=== PATIENT | female | born 1945 | race African-American/Black ===

== ENCOUNTER → 2021-09-13 | Outpatient (CLI) | payer MEDICARE ==
--- NOTE | 2021-09-13 11:38 | KCIC ---
MRI of the cervical spine without contrast 09/13/2021 CLINICAL HISTORY: Bilateral leg weakness with frequent falls. TECHNIQUE: Unenhanced T1-weighted, T2-weighted and inversion recovery sagittal and gradient echo and T2-weighted axial images of the cervical spine were obtained. FINDINGS: Mild lateral curvature of the cervical spine is seen convex to the left. There is straighte jason of the normal cervical lordosis. Degenerative signal changes and loss of height are seen involvi ng all of the disks of the cervical spine. Bony fusion across the C5-6 and C6-7 disc space is seen. P aracentral areas of increased signal intensity are seen on the T2-weighted and inversion recovery zainab ges involving the cervical spinal cord at the C3-4 and C4-5 levels. These measure 3 to 4 mm in size a nd are consistent with areas of myelomalacia. No additional area of abnormal signal intensity is seen involving the cervical spinal cord. 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 At the C2-3 disc space there is a mild generalized disc bulge. Degenerative changes are seen involvin g the uncovertebral and facet joints, right greater than left. These findings when combine with ossif ication of posterior longitudinal ligament results in mild central spinal canal stenosis without evid ence of cord impingement. Mild right neural foraminal stenosis is seen. The left neural foramen is pa tent. At the C3-4 disc space there is a mild to moderate generalized disc bulge. Degenerative changes are s een involving the uncovertebral and facet joints bilaterally. These findings when combined with calci fication of posterior longitudinal ligament results in severe left greater than right central spinal canal stenosis with severe left greater than right cord impingement. Mild bilateral neural foraminal stenosis is seen. At the C4-5 disc space there is a moderate generalized disc bulge. Superimposed on this disc bulge is a central/left paracentral focal disc protrusion. This measures 4 mm in AP diameter. Degenerative ch anges are seen involving the uncovertebral and facet joints, right greater than left. These findings when combined results in severe central spinal canal stenosis with severe cord impingement moderate t o severe right greater than left neural foraminal stenosis is seen. At the C5-6 disc space there is a mild generalized disc bulge. Superimposed on this disc bulge is a l eft paracentral focal disc protrusion. This measures 3 mm in AP diameter. Degenerative changes are se en involving the uncovertebral and facet joints bilaterally. These findings result in mild left great er than right central spinal canal stenosis without evidence of cord impingement. No neural foraminal stenosis is seen. At the C6-7 disc space there is a mild generalized disc bulge. Degenerative changes are seen involvin g the uncovertebral and facet joints bilaterally. These findings do not result in significant central spinal canal or neural foraminal stenosis. At the C7-T1 disc space there is a moderate generalized disc bulge. Degenerative changes are seen inv olving the facet joints bilaterally. These findings do not result in significant central spinal canal stenosis. Moderate bilateral neural foraminal stenosis is seen. IMPRESSION: 1. Degenerative changes are seen throughout the cervical spine. These findings results in mild centra l spinal canal stenosis at C2-3 and mild left greater than right central spinal canal stenosis at C5- 6 without evidence of cord impingement. Severe left greater than right central spinal canal stenosis with severe left greater than right cord impingement is seen at C3-4. Severe central spinal canal riky nosis with severe cord impingement is seen at C4-5. Multilevel neural foraminal stenosis of varying s everity is seen as discussed above. 2. There is a mild shift are seen involving the cervical spinal cord at the C3-4 and C4-5 levels as d iscussed above. Electronically signed by: Nathan Coles MD (09/13/2021 11:36 AM) [id number]
--- NOTE | 2021-09-13 12:24 | KCIC ---
MRI of the thoracic spine without contrast 09/13/2021 CLINICAL HISTORY: Bilateral leg weakness. Frequent falls. TECHNIQUE: Unenhanced T1-weighted, T2-weighted and inversion recovery sagittal and T1-weighted and T2 -weighted axial images of the thoracic spine were obtained. T2-weighted sagittal images of the cervic al, thoracic and lumbar spine were obtained for localization purposes. FINDINGS: Mild S-shaped curvature of the thoracolumbar spine is seen. Degenerative signal changes and varying loss of height are seen involving all of the disks of the thoracic spine. Degenerative signa l changes are seen within the marrow surrounding these discs. A 2 cm hemangioma is seen involving the T9 vertebral body. No area of abnormal signal intensity is seen involving the thoracic spinal cord. Degenerative changes are seen involving the thoracic disc spaces consisting of minimal to mild genera lized disc bulges and degenerative changes involving the facet joints. These findings do not result i n significant central spinal canal stenosis at any level. Mild to moderate right greater than left ne ural foraminal stenosis is seen at T1-2. IMPRESSION: Degenerative changes are seen involving the thoracic spine as discussed above. These find ings do not result in significant central spinal canal stenosis at any level. Mild to moderate right greater than left neural foraminal stenosis is seen at T1-2. No area of abnormal signal intensity is seen involving the thoracic spinal cord. No area of cord impingement is seen. Electronically signed by: Nathan Coles MD (09/13/2021 12:21 PM) [id number]
== END ==
LOC: KCIC MRI 09:07
PROVIDERS: ATTEND Physical Medicine & Rehabilitation
DX: M47.813 Spondylosis without myelopathy or radiculopathy, cervicothoracic region (principal); M50.21 Other cervical disc displacement, high cervical region; M48.03 Spinal stenosis, cervicothoracic region; M43.8X5 Other specified deforming dorsopathies, thoracolumbar region; D18.09 Hemangioma of other sites; R29.6 Repeated falls; R27.0 Ataxia, unspecified
CPT/HCPCS: 72141; 72146

== ENCOUNTER → 2021-12-06 | Day surgery (SDC) | payer MEDICARE ==
[~2021-12-06] MED LIST: AMLO-187 PO; AMOX875T PO; ASPI-630 PO; ATOR10TA60 PO; CARV12.511 PO; CHOL500050 PO; HYDR-2145 PO; POTA-121 PO; [UNRECOGNIZED DRUG - OTHER]
--- NOTE | 2021-12-06 11:50 | RAD ---
EXAM: Ultrasound-guided core biopsy left breast; unilateral postbiopsy mammogram. CLINICAL HISTORY: Left breast mass 3:00 position COMPARISON: Left breast ultrasound 09/24/2021 (DIC) TECHNIQUE AND FINDINGS: Risks, benefits, treatment options, and potential complications were discussed with the patient. Cons ent was obtained and the patient indicated willingness to proceed. A time out was performed immediate ly prior to the procedure to correctly identify the patient, side, site, and type of procedure to be performed. The patient was placed supine on the ultrasound table. Sonographic guidance was used to target the le franci(s) of concern in the left breast at 3:00 position 6 cm from the nipple. The overlying skin was m arked, prepped, and draped in usual sterile fashion. Local anesthesia was administered using 1% lidoc jorge in the skin and in the deeper soft tissues. Under imaging guidance, a 14-gauge core biopsy device was advanced to the margin of the lesion(s) and 7 core samples were obtained. Biopsy samples were placed in formalin and sent to pathology for histo pathologic analysis. An S-shaped biopsy marker clip was then advanced to the site of biopsy utilizing the same guidance technique. Good hemostasis was achieved with light manual compression and sterile dressing was applied. The patient was then transferred to the mammography suite for craniocaudal and mediolateral oblique views. Postbiopsy mammogram demonstrates immediate postbiopsy changes and a biopsy marker clip in expected p osition. The patient tolerated the procedure without difficulty and was discharged to home in stable condition with postbiopsy care instructions. IMPRESSION: Successful ultrasound-guided biopsy of the left breast mass and postbiopsy clip placement. Pathology is pending. An addendum will be provided once a pathologic diagnosis is established. Electronically signed by: Charles Millard DO (12/06/2021 11:48 AM) [id number]
== END | disposition home or self-care (01) ==
LOC: EDSTATUS 10:00 → US 10:29
PROVIDERS: ATTEND Surgery
DX: N63.21 Unspecified lump in the left breast, upper outer quadrant (principal); R92.8 Other abnormal and inconclusive findings on diagnostic imaging of breast; Z79.82 Long term (current) use of aspirin; Z79.899 Other long term (current) drug therapy
CPT/HCPCS: 19083; 77065; A4648; C1819

== ENCOUNTER 2022-01-09 09:59 | Observation (INO) | payer MEDICARE ==
[~2022-01-09] VITALS: Ht 162.6 cm; Wt 69.9 kg
[2022-01-09] VITALS (8 sets, daily range): BP systolic 102–158; BP diastolic 65–71
[~2022-01-09 09:59] MED LIST changes: +HYDROmorphone 2 MG/ML INJ. IVP PRN; +IV RINGERS,LACTATED 1000ML 1,000 ML IV SCH; +METH10TA32 PO; +MORPHINE SULFATE 2 MG/ML INJ. IVP PRN; +PROCHLORPERAZINE 10 MG/2 ML VIAL. IVP PRN; +ceFAZolin SODIUM IV Push 1 GM VIAL. IVP PRN; +fentaNYL PF VIAL 100 MCG/2 ML VIAL IVP PRN
--- NOTE | 2022-01-09 12:07 | RAD ---
EXAM: Left breast lymphoscintigraphy. HISTORY: 77-year-old female with history of left breast cancer presents for lymphoscintigraphy prior to sentinel node biopsy. TECHNIQUE: The risks of the procedure discussed with the patient and written and verbal consent was o btained. A timeout was performed. The skin of the anterior left breast was sterilely prepped. 1.1 mCi lymphoseek was injected intradermally in the periareolar location. No image was obtained. IMPRESSION: Left breast lymphoscintigraphy for sentinel lobe biopsy. Electronically signed by: Samantha Reyes MD (01/09/2022 12:05 PM) [id number]
[2022-01-09] MEDS ORDERED: ISOSULFAN BLUE 1% 50 MG/5 ML VIAL. SQ ONE (12:54)
[2022-01-09] MEDS ORDERED: PROPOFOL 10 MG/ML (20ML) VIAL. IV ONE (13:26)
[2022-01-09] MEDS ORDERED: LIDOCAINE 2% PF 5 ML VIAL. ONE (13:26)
[2022-01-09] MEDS ORDERED: fentaNYL PF VIAL 100 MCG/2 ML VIAL ONE ×2 (13:26→14:18)
[2022-01-09] MEDS ORDERED: DEXAMETHASONE SOD PHOS 4 MG/ML VIAL ONE (14:51)
[2022-01-09] MEDS ORDERED: ONDANSETRON PF 4 MG/2 ML VIAL. ONE (14:51)
[2022-01-09] MEDS ORDERED: NALOXONE 0.4 MG/ML VIAL. IV PRN (15:45)
[2022-01-09] MEDS ORDERED: IV NORMAL SALINE 1000ML BAG 1,000 ML IV SCH (15:45)
[2022-01-09] MEDS: IV 1/2 NORMAL SALINE 1,000 ML IV SCH (15:45)
[2022-01-09] MEDS ORDERED: HYDROcodone/APAP 5/325MG 1 TAB TABLET PO PRN ×2 (15:45)
[2022-01-09] MEDS ORDERED: 0.9 % SODIUM CHLORIDE 10 ML DISP.SYRIN. IV PRN (15:45)
[2022-01-09] MEDS ORDERED: HYDROmorphone 2 MG/ML INJ. IV PRN (15:45)
[2022-01-09] MEDS ORDERED: ONDANSETRON PF 4 MG/2 ML VIAL. IVP PRN (15:45)
--- NOTE | 2022-01-09 16:36 | NUR ---
Arrived to unit by bed from PACU. Alert and oriented x's 4. No c/o at this time. Left chest dressing d/i with maliha drain d/i. Able to move left arm easily, warm and radial pulse +. SCD's on bilaterally. IVF's intact and infusing. Pt needing to use bathroom. Assisted to bathroom with steady gait. Pt usually uses walker. Voided and wanted to sit in chair. Call light within reach. Family at bedside. Cont. monitor.
[2022-01-09] MEDS: CARVEDILOL 12.5 MG TABLET. PO SCH (18:00)
[2022-01-09] MEDS: methIMAzole 10 MG TABLET PO SCH (21:11)
--- NOTE | 2022-01-09 22:55 | NUR ---
Patient assisted with HS routine. Patient has been observed pushing up and pulling with left arm to get up or off commode. Patient instructed multiple times and reminded not to push and pull with left arm. Patient has to be reminded frequently about elevating arm on pillows. Patient assisted to bed and left arm elevated on pillow. blood noted on pillow case and sheet on chair. dressing around MARY drain reinforced as blood noted oozing down back. Increased blood noted on incision site but not saturated. Patient positioned in bed with pillows to elevate arm and ice pack to drain site. Reinforced for patient to call to reposition in bed and not push and pull with surgical arm.
[2022-01-10 03:17] VITALS: BP 168/75
[2022-01-10] MEDS: IV 1/2 NORMAL SALINE 1,000 ML IV SCH (04:15)
[2022-01-10 06:23] VITALS: BP 126/61
[2022-01-10] MEDS: CARVEDILOL 12.5 MG TABLET. PO SCH (08:55)
[2022-01-10] MEDS: methIMAzole 10 MG TABLET PO SCH (08:55)
--- NOTE | 2022-01-10 08:58 | PDOC ---
SURGICAL PROGRESS NOTE DATE: 01/10/22 TIME: 08:57 Subjective had some bleeding around drain site no pain ambulating Vital Signs Vital Signs Date Time Temp Pulse Resp B/P (MAP) Pulse Ox O2 Delivery O2 Flow Rate FiO2 01/10/22 06:23 98.0 80 18 126/61 (82) 100 Room Air 98.0 01/09/22 15:53 8.0 I&O Intake and Output 01/10/22 07:00 Intake Total 1680 ml Output Total 2030 ml Balance -350 ml Intake Oral 780 ml IV Total 900 ml Output Urine Total 1750 ml Drainage Total 240 ml Estimated Blood Loss 40 ml General: Alert, Oriented X3, Cooperative Skin: Other (incision dressing with drainage, drain in place, suction holding ) Labs Laboratory Tests Test 01/09/22 10:17 POC SARS CoV-2 Antigen Negative (NEGATIVE) Laboratory Tests Test 01/09/22 10:17 POC SARS CoV-2 Antigen Negative (NEGATIVE) Assessment/Plan s/p mastectomy plan dc home today Justicifation of Admission Dx: Justifications for Admission: Justification of Admission Dx: Yes Comments: breast cancer FAUSTINA WILSON MANAGER QA January 10, 2022 08:58
[2022-01-10] MEDS ORDERED: ASPIRIN CHEWABLE 81 MG TABLET. PO SCH (09:00)
[2022-01-10] MEDS ORDERED: POTASSIUM CHLORIDE 20 MEQ TABLET.ER. PO SCH (09:00)
[2022-01-10] MEDS ORDERED: ATORVASTATIN CALCIUM 10 MG TABLET. PO SCH (09:00)
[2022-01-10] MEDS ORDERED: hydroCHLOROthiazide 25 MG TABLET PO SCH (09:00)
[2022-01-10] MEDS ORDERED: HYDR-2761 PO (09:00)
--- NOTE | 2022-01-10 09:02 | DISCH ---
DISCHARGE INSTRUCTIONS Condition on Discharge Condition on Discharge: Stable Activity After Discharge Activity Instructions for Disc: Activity as tolerated Other activity instructions: drain care, keep dry Bathing Instructions: Shower-keep dressing dry Lifting Instructions after Dis: No heavy lifting, No pulling or pushing Driving Instructions after Dis: Do not drive Diet after Discharge Diet after Discharge: Regular Wound Incision Care Wound/Incision Care: Do not change dressing, Reinforce dressing PRN Other wound/incision instructi: drain as instructed Contacting the DRPricila after DC Call your doctor for: Concerns you may have Follow-Up Follow up with: Dr Thorpe 1 week, call to schedule [phone] FAUSTINA WILSON APRN January 10, 2022 09:02
[2022-01-10 11:00] VITALS: BP 111/55
--- NOTE | 2022-01-10 11:37 | PDOC4 ---
Operative Note Operative Note Date of surgery: 01/09/22 Operative Note: Preoperative Diagnosis: Left breast cancer Postoperative Diagnosis: Same Procedure: Left simple mastectomy, sentinel lymph node biopsy Surgeon: Maurilio Head Of Art: Amber Deng MS 3 Anesthesia: General EBL: 40 mL Specimen: Left axillary sentinel lymph node biopsy to pathology, left breast stitch at 12:00 to pathology Drains: 19 Lao MARY drain to chest wall Complications: None Indication: The patient is a 77-year-old female who was recently diagnosed with left breast cancer. She is not interested in conservation and has elected for complete mastectomy. We plan to incorporate a sentinel lymph node biopsy. The risks of surgery were discussed with the patient which include bleeding, infection, wound healing problems, pain, scar tissue, anesthetic risk, lymphedem a, seroma formation, potential need for additional surgery procedure. She understands and would like to proceed. Description: The patient was initially taken to radiology where she underwent injection of technetium sulfur colloid. She was then brought to the operating room and placed supine on the operating table. General anesthesia was performed. The left breast and axilla were prepped with ChloraPrep and draped in a standard surgical manner. Five mL of Lymphazurin were injected deep to the nipple areolar complex. Several minutes were allowed to elapse. An elliptical tracing was made around the breast extending from the medial aspect to the axilla. The superior lateral aspect of the tracing was opened with a scalpel. Cautery dissection was carried down into the axillary tissues. A single blue staining hot sentinel lymph node was identified. This was harvested from the deleon rrounding tissues and sent as a specimen to pathology. Frozen section showed no evidence of metastasis. There were no other areas of increased nuclear uptake or blue staining lymph nodes or palpable lymphadenopathy. We then proceeded with the mastectomy. With a scalpel the skin was incised along the elliptical tracing. The superior skin flap was developed first. The breast parenchyma was from the skin, and the dissection was carried superiorly to the level below the clavicle. In a similar manner the inferior skin flap was developed; the breast was from the skin down to the level of the torso which included the inframammary fold. In a medial to lateral fashion the breast was taken off of the chest wall. A silk stitch marked the 12:00 location in the left breast was sent to pathology. Hemostasis was achieved with cautery. The subcutaneous tissue was approximated with 3-0 Vicryl. Skin was closed with 4-0 Monocryl. A sterile OpSite dressing was then applied. The patient tolerated the procedure well and was sent to the recovery room in stable condition. At the end of the case all counts were correct. DEUCE CHU MD January 10, 2022 11:36
--- NOTE | 2022-01-10 14:42 | NUR ---
Pt and family were educated on drain and incision care. Discharge instructions, new prescriptions and follow up was reviewed with patient and daughter at bedside. Pt's iv removed. Drain emptied and drain dressing changed. Pt was escorted via wheelchair to vehicle, daughter driving her home with self care. Patient has daughter and daughter in law helping her at home. She gets around well with a walker. All belongings left with patient at time of discharge. Pt left at 1444, stable, alert x4. Follow up with Dr. Thorpe in 1 week- patient agreed.
--- NOTE | 2022-01-15 11:42 | PDOC3 ---
Discharge Summary Visit Information Date of Admission: January 09, 2022 Date of Discharge: January 10, 2022 Admitting Diagnosis: left breast cancer Final Diagnosis left breast cancer Brief Hospital Course Allergies Allergies Coded Allergies Type Severity Reaction Last Updated Verified No Known Drug Allergies 01/09/22 No Brief Hospital Course Ms. lAdana is a 77 old female who underwent Left simple mastectomy, sentinel lymph node biopsy. postoperatively tolerating diet, ambulating, and drain working. Ready for discharge home. Follow up in 1 week Discharge Information Condition at Discharge: Stable Follow Up: Weeks (1) Disposition/Orders: D/C to Home Scheduled Amlodipine Besylate (Amlodipine Besylate) 10 Mg Tablet, 10 MG PO DAILY, (Reported) Entered as Reported by: NADIA MIXON on 10/09/211331 Last Taken: Unknown Dose on 01/09/22399 Last Action: Continued on 01/09/221534 by DEUEC CHU Aspirin (Aspirin) 81 Mg Tab.chew, 1 TAB PO DAILY, #90 Ref 3 (Reported) Entered as Reported by: NADIA MIXON on 10/09/211331 Last Taken: Unknown Dose on 12/24/21 Last Action: Continued on 01/09/221534 by DEUCE CHU Atorvastatin Calcium (Atorvastatin Calcium) 10 Mg Tablet, 10 MG PO DAILY for FOR CHOLESTEROL, #30 Ref 0 (Reported) Entered as Reported by: NADIA MIXON on 10/09/211331 Last Taken: Unknown Dose on 01/09/22399 Last Action: Continued on 12/30 by DEUCE CHU Carvedilol (Carvedilol ) 12.5 Mg Tablet, 12.5 MG PO BIDWMEALS for CARDIAC, (Reported) Entered as Reported by: NADIA MIXON on 10/09/211331 Last Taken: Unknown Dose on 01/09/22399 Last Action: Continued on 01/09/221534 by DEUCE CHU Hydrochlorothiazide (Hydrochlorothiazide Tablet ) 25 Mg Tablet, 25 MG PO DAILY for DIURETIC, Ref 0 (Reported) Entered as Reported by: NADIA MIXON on 10/09/211331 Last Taken: Unknown Dose on 01/08/22 Last Action: Continued on 01/09/221534 by DEUCE CHU Methimazole (Methimazole) 10 Mg Tablet, 10 MG PO BID for HYPERTHYROID, (Reported) Entered as Reported by: VARINDER RUSSELL on 01/08/22 1113 Last Taken: Unknown Dose on 01/08/22 Last Action: Continued on 01/09/22 153 by DEUCE CHU Potassium Chloride (Klor-Con M20) 20 Meq Tab.er.prt, 20 MEQ PO DAILY, (Reported) Entered as Reported by: NADIA MIXON on 10/09/21 1332 Last Taken: Unknown Dose on 01/08/22 Last Action: Continued on 01/09/22 153 by DEUCE CHU Scheduled PRN Hydrocodone Bit/Acetaminophen (Hydrocodone-Apap 5-325 ) 1 Tab Tablet, 1 TAB PO PRN Q4HRS PRN for MILD PAIN 1-3, #20 Ref 0 Prescribed by: Faustina Brasher on 01/10/22 0900 Miscellaneous Medications Cholecalciferol (Vitamin D3) (Vitamin D3) 1,250 Mcg Capsule, 1,250 MCG PO, (Reported) Entered as Reported by: NADIA MIXON on 10/09/211331 Last Taken: Unknown Dose on 01/08/22 Last Action: Last Taken Edited on 01/09/22 1023 by Eulalia Penny Justicifation of Admission Dx: Justifications for Admission: Justification of Admission Dx: Yes FAUSTINA BRASHER APRN January 15, 2022 11:42
== END 2022-01-10 14:45 | disposition home or self-care (01) ==
LOC: SURG 09:59 → 4 SOUTHEST 17:38
PROVIDERS: ADMIT Surgery; ATTEND Surgery
DX: C50.912 Malignant neoplasm of unspecified site of left female breast (principal); Z20.822 Contact with and (suspected) exposure to COVID-19
CPT/HCPCS: 19303; 38525; 38792; 88307; 88331; 88342; A4209; A4930; A6254; A6255; A6258; A6402; A9520; G0378; G0379; J0690; J1100; J2405; J2704; J3010; Q9968; 96374